=== PATIENT | female | born 1960 ===

== ENCOUNTER → 2016-02-15 | Outpatient (CLI) | payer BC ==
[2016-02-15 18:45] LABS: ALT/SGPT 44 U/L (12-78); BLOOD UREA NITROGEN 15 mg/dl (7-18); BUN/CREATININE RATIO 18.4 (10-20); CALCIUM 9.2 mg/dl (8.5-10.1); CARBON DIOXIDE 30 mmol/L (21-32); CHLORIDE 104 mmol/L (98-107); GLUCOSE 80 mg/dl (70-99); POTASSIUM 4.8 mmol/L (3.5-5.1); SODIUM 141 mmol/L (136-145)
[2016-02-15 18:48] LABS: ALB/GLOB RATIO 1.2 (0.9-2); ALKALINE PHOSPHATASE 110 U/L (45-117); AST/SGOT 38 U/L (15-37)
== END | disposition home or self-care (01) ==
LOC: C.LABSPEC 14:37
PROVIDERS: ATTEND Family Medicine
DX: E78.2 Mixed hyperlipidemia (principal)

== ENCOUNTER → 2016-11-11 | Outpatient (CLI) | payer BC ==
[2016-11-11 14:13] LABS: ALT/SGPT 29 U/L (12-78); AST/SGOT 28 U/L (15-37); BLOOD UREA NITROGEN 10 mg/dl (7-18); BUN/CREATININE RATIO 13.5 (10-20); CALCIUM 8.8 mg/dl (8.5-10.1); CARBON DIOXIDE 27 mmol/L (21-32); CHLORIDE 106 mmol/L (98-107); CREATININE 0.73 mg/dl (0.60-1.20); GLUCOSE 95 mg/dl (70-99); POTASSIUM 4.5 mmol/L (3.5-5.1); SODIUM 141 mmol/L (136-145)
[2016-11-11 14:17] LABS: ALB/GLOB RATIO 1.1 (0.9-2); ALKALINE PHOSPHATASE 101 U/L (45-117); CHOLESTEROL 233 mg/dl (0-200); CHOLESTEROL/HDL RATIO 5.4; HDL CHOLESTEROL 43 mg/dl; LDL CHOLESTEROL CALCULATED 120 mg/dl; TRIGLYCERIDES 349 mg/dl (0-150); VERY LOW DENSITY LIPOPROT CALC 70 mg/dl
== END | disposition home or self-care (01) ==
LOC: C.LABSPEC 13:25
PROVIDERS: ATTEND Family Medicine
DX: Z00.00 Encounter for general adult medical examination without abnormal findings (principal); E78.2 Mixed hyperlipidemia